=== PATIENT | female | born 1975 | race Caucasian/White ===

== ENCOUNTER 2024-01-02 12:00 | Emergency (ER) | payer SELFPAY ==
[2024-01-02 12:03] VITALS: BP 170/88
[2024-01-02 13:27] VITALS: BMI 22.9
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
[2024-01-02 16:10] VITALS: BP 165/88
== END 2024-01-02 16:13 | disposition home or self-care (01) ==
LOC: EMR 12:00
PROVIDERS: EMERGENCY PHYSICIAN Student in an Organized Health Care Education/Training Program; FAMILY PHYSICIAN Family Medicine
DX: S09.92XA Unspecified injury of nose, initial encounter (principal); R04.0 Epistaxis; W50.0XXA Accidental hit or strike by another person, initial encounter; Y99.0 Civilian activity done for income or pay
CPT/HCPCS: 99283